=== PATIENT | male | born 1960 | race Caucasian/White ===

== ENCOUNTER → 2016-12-22 | Outpatient (CLI) | payer BC ==
[~2016-12-22] MED LIST: SULF-221 PO
[2016-12-22 11:05] VITALS: BP 132/81
--- NOTE | 2016-12-22 11:05 | Urgent Care T Sheet Gen (E) ---
Intake General Temperature (Fahrenheit): 98.0 Pulse: 87 Blood Pressure Systolic: 132 Blood Pressure Diastolic: 81 Respirations: 18 Description of Symptoms Patient presents with a possible spider bite to the R lateral leg. First noticed a painful red spot approx 4 days ago. Over time, the area has gotten bigger and more painful. Redness has increased. No drainage. No fever but the surrounding area is warm. No meds. History of Present Illness Allergies: Coded Allergies: No Known Drug Allergies (Unverified , 05/06/13) Home Meds Active Scripts Sulfamethoxazole/Trimethoprim (Sulfamethoxazole/Trimethoprim DS 800mg/160mg)1 Each Tablet1 Each PO BID #20 TAB Prov:JOSEFINA CURRIE 12/22/16 Respiratory Constitutional Symptoms: No syptoms reported EENTM: No symptoms reported Respiratory: No symptoms reported Cardiovascular: No symptoms reported Gastrointestinal/Abdominal: No symptoms reported Skin: Change in color Lesions All Other Systems Reviewed Remaining Systems: All other systems reviewed with negative findings Past Hqsxasx-Maqggt-Bnitwx Hx Surgeries/Hospitalizations Hospitalization/Surgery Hx: None Respiratory Respiratory History: None Cardiovascular Cardiovascular History: None Neuro/Muscular Neuro/Muscular History: None Genitouinary Genitourinary History: None Gastrointestinal GI/Endocrine History: None Diabetes Diabetes: No Integumentary Integumentary History: None Cancer History of Cancer?: No Physical Exam Physical Exam General Appearance: WD/WN No apparent distress Skin Exam: Other (along the R lateral lower leg, near the fibular head, there is a black scab approx the size of a quarter. surrounding skin is red, firm and warm. no drainage is noted. ) Departure Urgent Care Impression Impression: Primary Impression: Skin infection Departure Disposition: 01 HOME OR SELF-CARE Condition: Stable Referrals: YOUSIF DUMONT MD (PCP) Additional Instructions: Most likely a spider bite however the patient doesn't remember being bitten. The area is warm and painful however no numbness or itching. I have started him on Bactrim DS x 10 days Warm compress or soak in the bathtub to promote drainage Watch for worsening symptoms such as increased redness or fever Return as needed Patient understands DC instructions. All questions were answered. Scripts Sulfamethoxazole/Trimethoprim (Sulfamethoxazole/Trimethoprim DS 800mg/160mg)1 Each Tablet1 Each PO BID #20 TAB Prov:JOSEFINA CURRIE 12/22/16 End of report . JOSEFINA CURRIE Dec 22, 2016 10:14
== END ==
LOC: MHUC 10:00
PROVIDERS: ATTEND Physician Assistant
DX: L08.89 Other specified local infections of the skin and subcutaneous tissue (principal)
CPT/HCPCS: 99212